=== PATIENT | male | born 1985 | race Hispanic/Latino ===

== ENCOUNTER 2019-12-31 12:16 | Emergency (ER) | payer OTHER, SELFPAY ==
[2019-12-31 12:21] VITALS: BP 133/80; PULSE 66; RESP 18; TEMP 36.4; O2SAT 98
--- NOTE | 2019-12-31 12:24 | DI.RAD.S_ITS ---
PROCEDURE: XR CHEST 1V INDICATIONS: chest pain TECHNIQUE: One view of the chest was acquired. COMPARISON: None. FINDINGS: Surgical changes and devices: None. Lungs and pleura: Lungs are clear. No pleural effusions or pneumothorax. Mediastinum: Mediastinal contours appear normal. Heart size is normal. Bones and chest wall: No suspicious bony lesions. Overlying soft tissues appear unremarkable. IMPRESSION: No acute cardiopulmonary disease. Dictated by: Minerva Blackmon M.D. on 12/31/2019 at 13:19 Approved by: Minerva Blackmon M.D. on 12/31/2019 at 13:26
--- NOTE | 2019-12-31 12:44 | ED_ITS ---
HPI - Chest Pain <JOSUE Martinez - Last Filed: 12/31/19 15:47> General Chief Complaint: Chest Pain Stated Complaint: Heart Pain, Sweating Time Seen by Provider: 12/31/19 12:37 Source: patient Mode of arrival: Ambulatory Limitations: no limitations History of Present Illness HPI narrative: This is a 34-year-old male, former smoker, who does not have contributing medical history presents to ED from work with chief complain of localized and reproducible left chest pain radiation to left shoulder which lasted 25-30 minutes at 10:30 a.m. with sweats. 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 Patient reports he had similar symptoms in the past of few times but not as this severe. Patient denies associated symptoms such as breathing difficulty, dizziness, abdominal pain, nausea or vomiting. Patient reports pain felt like muscle cramps and rates as 7/10 and patient reports currently pain-free at this time. Patient reports pain improved when he put his arm up and stretched his chest. Patient denies family history of cardiac history. He reports noticed small amount of frequent urination glass few days and has to wake up every 3 hours at night but denies dysuria, burning with [place], hematuria, or urgency. No history of known diabetes. Related Data Home Medications Medication Instructions Recorded Confirmed No Known Home Medications 12/31/19 12/31/19 Allergies Allergy/AdvReac Type Severity Reaction Status Date / Time hydrocodone [From Vicodin] Allergy Intermediate Difficulty Verified 12/31/19 12:23 Breathing Review of Systems <JOSUE Martinez - Last Filed: 12/31/19 15:47> Review of Systems Narrative: General: Denies fever, chills, fatigue, malaise, sweats. HEENT: Denies sinus pain, ear pain, sore throat, difficulty swallowing, d izziness. Respiratory: Denies dyspnea, cough, wheezing, hemoptysis, sputum. Cardiovascular: See HPI Gastrointestinal: Denies nausea, vomiting, abdominal pain, diarrhea, constipation, melena. : Denies dysuria, (+) frequency, incontinence, hematuria, urinary retention. Musculoskeletal: See HPI Skin: Denies rash, skin lesions, or other. Neurologic: Denies weakness, headache, numbness, change in speech, confusion, seizures, incoordination. Psychiatric: No concerning psychosocial issues. 12-point review of systems is negative except for those stated above. Patient History <Daniele MimsJOSUE Garcia - Last Filed: 12/31/19 15:47> Medical History (Updated 12/31/19 @ 15:40 by JOSUE Martinez) No significant past medical history (Acute) Surgical History (Updated 12/31/19 @ 12:48 by JOSUE Martinez) No pertinent past surgical history (Acute) Social History Smoking Status: Former smoker Smoking Status: Former smoker alcohol intake frequency: 0-2 drinks per day Substance Use Type: marijuana Exam <Daniele MimsJOSUE Garcia - Last Filed: 12/31/19 15:47> Narrative Exam Narrative: GEN: Alert, oriented x 3, well appearing and nourished, and in no acute distress. Head: Normal cephalic, atraumatic. No scalp or temporal tenderness, palpable mass or rash. EYES: Pupils are equal, round, and reactive to light and accommodation. Extraocular muscles are intact bilaterally. There is no subconjunctival hemorrhage, exudate and sclera non-icteric. ENT: Hearing grossly intact. Airway patent. Neck: Trachea in midline. No JVD, non-tender without lymphadenopathy. No masses or thyroid megaly. Supple, non-tender and no meningeal signs. CARDIAC: Normal regular rate and rhythm without murmurs, gallops, or rubs. Localized chest pain to palpate in left mid chest sternal border. No peripheral edema, cyanosis or pallor. Capillary refill is less than 2 seconds. RESPIRATORY: Lungs are clear to auscultate bilaterally. No cough, wheezes, rales, or rhonchi. No stridor, respiratory distress, increase work of breathing, or accessary muscle used. ABD: Abdomen soft, nontender and non-distended. No guarding or rebound tenderness to palpate. Bowel sounds are normal in all 4 quadrants. There is no palpable masses or organomegaly. EXT: Full painless ROM of all extremities with no loss of sensation, strength, effusion or edema. SKIN: Warm, dry, normal color for patient. No erythema, lesions or rash over visible areas. BACK: Nontender without deformity or crepitance. No flank tenderness. NEUROLOGICAL: Alert and oriented to place, time and person. Sensation and motor function intact bilaterally. No facial droops, dysphasia. PSYCHIATRIC: Good judgement and reason, without hallucinations, abnormal affect or abnormal behaviors during the examination. Patient is not suicidal. Initial Vital Signs Initial Vital Signs: Vital Signs Temperature 97.5 F L 12/31/19 12:21 Pulse Rate 66 12/31/19 12:21 Respiratory Rate 18 12/31/19 12:21 Blood Pressure 133/80 12/31/19 12:21 Pulse Oximetry 98 12/31/19 12:21 <Nancy Pantoja DO - Last Filed: 01/06/20 07:30> Initial Vital Signs Initial Vital Signs: Vital Signs Temperature 97.5 F L 12/31/19 12:21 Pulse Rate 66 12/31/19 12:21 Respiratory Rate 18 12/31/19 12:21 Blood Pressure 133/80 12/31/19 12:21 Pulse Oximetry 98 12/31/19 12:21 Scores <RUMA MartinezP - Last Filed: 12/31/19 15:47> GCS Hero coma scale eye opening: Spontaneous [place] coma scale verbal response: Orientated [place] coma scale motor response: Obey commands [place] coma scale total score: 15 HEART Score Heart Score history: Slightly Suspicious Heart Score EKG: Normal Heart Score Age: < 45 years old Heart Score risk factors: No known risk factors Heart Score troponin: < or = to normal limit Heart Score Total: 0 Course <Daniele MimsRUMA GarciaP - Last Filed: 12/31/19 15:47> Orders Ordered: Discontinued Medications Ketorolac Tromethamine (Toradol) 30 mg IM NOW ONE Stop: 12/31/19 13:38 Last Admin: 12/31/19 13:55 Dose: 30 mg Documented by: JAC Vital Signs Vital signs: Vital Signs - 8 hr 12/31/19 12:21 12/31/19 15:40 Temperature 97.5 F L Pulse Rate 66 64 Respiratory Rate 18 14 Blood Pressure 133/80 134/68 Pulse Oximetry 98 97 <Nancy Pantoja DO - Last Filed: 01/06/20 07:30> Orders Ordered: Discontinued Medications Ketorolac Tromethamine (Toradol) 30 mg IM NOW ONE Stop: 12/31/19 13:38 Last Admin: 12/31/19 13:55 Dose: 30 mg Documented by: JAC Vital Signs Vital signs: Vital Signs - 8 hr 12/31/19 12:21 12/31/19 15:40 Temperature 97.5 F L Pulse Rate 66 64 Respiratory Rate 18 14 Blood Pressure 133/80 134/68 Pulse Oximetry 98 97 MDM - Chest Pain <Daniele JOSUE Perales - Last Filed: 12/31/19 15:47> Differential Diagnosis Differential diagnosis: Likely pneumothorax, atypical chest pain, costochondritis and other (Pneumonia, pleuritis, costal chondritis, electrolytes imbalance, diabetes,) Medical Records Data Attestation: I reviewed the patient's medical records. Lab Data Attestation: I reviewed the patient's lab results. Result diagrams: 12/31/19 12:40 12/31/19 12:40 Labs: Lab Results 12/31/19 12/31/19 12/31/19 Range/Units 12:40 12:40 12:40 WBC 9.7 (4.5-11.0) X10^3/uL RBC 4.91 (4.5-5.9) X10^6/uL Hgb 14.4 (13.5-17.5) g/dL Hct 41.0 (41-53) % MCV 83.5 (80-100) fL MCH 29.3 (26-34) PG MCHC 35.1 (30-36) % RDW 13.3 (11.6-14.8) % Plt Count 244 (150-400) X10^3/uL Neut % (Auto) 51.6 (50-75) % Lymph % (Auto) 33.5 (25-40) % [place] % (Auto) 6.5 (3-14) % Eos % (Auto) 7.2 H (2-4) % Baso % (Auto) 1.2 (0-2) % Neut # (Auto) 5000 (7303-4384) /uL Lymph # (Auto) 3200 (1245-6673) /uL [place] # (Auto) 600 (0-900) /uL Eos # (Auto) 700 H (0-450) /uL Baso # (Auto) 100 (0-100) /uL PT 10.6 (10.1-12.7) SECONDS INR 0.9 (0.9-1.3) APTT 32 (26.4-36.2) SECONDS Sodium 139 (137-145) mmol/L Potassium 3.8 (3.4-5.1) mmol/L Chloride 102 (98-107) mmol/L Carbon Dioxide 27 (22-32) mmol/L BUN 11 (9-20) mg/dL Creatinine 0.82 (0.66-1.25) mg/dL Estimated GFR > 60.0 (>60) mL/min BUN/Creatinine Ratio 13.4 (6-22) Glucose 106 H (70-100) mg/dL Calcium 9.6 (8.4-10.2) mg/dL Total Bilirubin 0.5 (0.2-1.3) mg/dL AST 42 (17-59) IU/L ALT 51 H (<50) IU/L Alkaline Phosphatase 55 (38-126) U/L Total Creatine Kinase 519 H (55-170) U/L CK-MB (CK-2) 3.76 H (<2.37) ng/mL CK-MB (CK-2) Rel Index 0.7 L (1.5-5.0) % Troponin I < 0.012 (0.01-0.034) ng/mL Total Protein 8.8 H (6.3-8.2) g/dL Albumin 4.8 (3.5-5.0) g/dL Globulin 4.0 (1.7-4.1) g/dL Albumin/Globulin Ratio 1.2 (1.0-2.8) Lipase 33 (23-300) U/L 12/31/19 Range/Units 15:00 WBC (4.5-11.0) X10^3/uL RBC (4.5-5.9) X10^6/uL Hgb (13.5-17.5) g/dL Hct (41-53) % MCV (80-100) fL MCH (26-34) PG MCHC (30-36) % RDW (11.6-14.8) % Plt Count (150-400) X10^3/uL Neut % (Auto) (50-75) % Lymph % (Auto) (25-40) % [place] % (Auto) (3-14) % Eos % (Auto) (2-4) % Baso % (Auto) (0-2) % Neut # (Auto) (9817-3117) /uL Lymph # (Auto) (7521-9917) /uL [place] # (Auto) (0-900) /uL Eos # (Auto) (0-450) /uL Baso # (Auto) (0-100) /uL PT (10.1-12.7) SECONDS INR (0.9-1.3) APTT (26.4-36.2) SECONDS Sodium (137-145) mmol/L Potassium (3.4-5.1) mmol/L Chloride (98-107) mmol/L Carbon Dioxide (22-32) mmol/L BUN (9-20) mg/dL Creatinine (0.66-1.25) mg/dL Estimated GFR (>60) mL/min BUN/Creatinine Ratio (6-22) Glucose (70-100) mg/dL Calcium (8.4-10.2) mg/dL Total Bilirubin (0.2-1.3) mg/dL AST (17-59) IU/L ALT (<50) IU/L Alkaline Phosphatase (38-126) U/L Total Creatine Kinase 488 H (55-170) U/L CK-MB (CK-2) 3.51 H (<2.37) ng/mL CK-MB (CK-2) Rel Index 0.7 L (1.5-5.0) % Troponin I < 0.012 (0.01-0.034) ng/mL Total Protein (6.3-8.2) g/dL Albumin (3.5-5.0) g/dL Globulin (1.7-4.1) g/dL Albumin/Globulin Ratio (1.0-2.8) Lipase (23-300) U/L Imaging Data Chest x-ray: Radiologist's Impression: [address] [place] [id number] XRay Report Signed Patient: Cristiano Schwarz PRINCE#: [id number] : 1985Acct:[id number] Age/Sex: 34 / MDate of Service: 12/31/19 Loc: ED Accession Number: [id number] Procedure: XR chest 1V Ordering Provider: Nancy Pantoja D.O. PROCEDURE: XR CHEST 1V INDICATIONS: chest pain TECHNIQUE: One view of the chest was acquired. COMPARISON: None. FINDINGS: Surgical changes and devices: None. Lungs and pleura: Lungs are clear. No pleural effusions or pneumothorax. Mediastinum: Mediastinal contours appear normal. Heart size is normal. Bones and chest wall: No suspicious bony lesions. Overlying soft tissues appear unremarkable. IMPRESSION: No acute cardiopulmonary disease. Dictated by: Minerva Blackmon M.D. on 12/31/2019 at 13:19 Approved by: Minerva Blackmon M.D. on 12/31/2019 at 13:26 ECG Data Attestation: I personally reviewed and interpreted this ECG as follows: Prior ECG tracings: not available for review Interpretation: Sinus bradycardia rate at 58. NOrmal [place]. PA interval 150, QRS duration 108, QT/QTC 404/400. No acute ST changes MDM Narrative Medical decision making narrative: EKG normal sinus Jonathan rhythm without acute ST changes. Chest x-ray without acute cardiopulmonary disease findings. Physical exam is unremarkable. Heart Score is 0. Patient reports reproducible and localized left-sided chest pain resolved after lasting about 30 minutes when it occurred this morning. No leukocytosis, unremarkable chemistry test. Two sets of troponin was negative. Slightly elevated CK of 519 which has improved to 488 after oral hydration. CK-MB is slightly elevated to 3.76 and 2nd one as 3.51 CK/MB but relative index is negative. Patient continued to have symptoms free ED. patient advised to arrange primary care physician and have come outpatient cardiac workup to follow. Return precautions were discussed with patient and patient verbalized understanding and agreement with the treatment plan. <Nancy Pantoja, DO - Last Filed: 01/06/20 07:30> Lab Data Labs: Lab Results 12/31/19 12/31/19 12/31/19 Range/Units 12:40 12:40 12:40 WBC 9.7 (4.5-11.0) X10^3/uL RBC 4.91 (4.5-5.9) X10^6/uL Hgb 14.4 (13.5-17.5) g/dL Hct 41.0 (41-53) % MCV 83.5 (80-100) fL MCH 29.3 (26-34) PG MCHC 35.1 (30-36) % RDW 13.3 (11.6-14.8) % Plt Count 244 (150-400) X10^3/uL Neut % (Auto) 51.6 (50-75) % Lymph % (Auto) 33.5 (25-40) % [place] % (Auto) 6.5 (3-14) % Eos % (Auto) 7.2 H (2-4) % Baso % (Auto) 1.2 (0-2) % Neut # (Auto) 5000 (5142-9402) /uL Lymph # (Auto) 3200 (1025-6010) /uL [place] # (Auto) 600 (0-900) /uL Eos # (Auto) 700 H (0-450) /uL Baso # (Auto) 100 (0-100) /uL PT 10.6 (10.1-12.7) SECONDS INR 0.9 (0.9-1.3) APTT 32 (26.4-36.2) SECONDS Sodium 139 (137-145) mmol/L Potassium 3.8 (3.4-5.1) mmol/L Chloride 102 (98-107) mmol/L Carbon Dioxide 27 (22-32) mmol/L BUN 11 (9-20) mg/dL Creatinine 0.82 (0.66-1.25) mg/dL Estimated GFR > 60.0 (>60) mL/min BUN/Creatinine Ratio 13.4 (6-22) Glucose 106 H (70-100) mg/dL Calcium 9.6 (8.4-10.2) mg/dL Total Bilirubin 0.5 (0.2-1.3) mg/dL AST 42 (17-59) IU/L ALT 51 H (<50) IU/L Alkaline Phosphatase 55 (38-126) U/L Total Creatine Kinase 519 H (55-170) U/L CK-MB (CK-2) 3.76 H (<2.37) ng/mL CK-MB (CK-2) Rel Index 0.7 L (1.5-5.0) % Troponin I < 0.012 (0.01-0.034) ng/mL Total Protein 8.8 H (6.3-8.2) g/dL Albumin 4.8 (3.5-5.0) g/dL Globulin 4.0 (1.7-4.1) g/dL Albumin/Globulin Ratio 1.2 (1.0-2.8) Lipase 33 (23-300) U/L 12/31/19 Range/Units 15:00 WBC (4.5-11.0) X10^3/uL RBC (4.5-5.9) X10^6/uL Hgb (13.5-17.5) g/dL Hct (41-53) % MCV (80-100) fL MCH (26-34) PG MCHC (30-36) % RDW (11.6-14.8) % Plt Count (150-400) X10^3/uL Neut % (Auto) (50-75) % Lymph % (Auto) (25-40) % [place] % (Auto) (3-14) % Eos % (Auto) (2-4) % Baso % (Auto) (0-2) % Neut # (Auto) (6759-0977) /uL Lymph # (Auto) (3414-0614) /uL [place] # (Auto) (0-900) /uL Eos # (Auto) (0-450) /uL Baso # (Auto) (0-100) /uL PT (10.1-12.7) SECONDS INR (0.9-1.3) APTT (26.4-36.2) SECONDS Sodium (137-145) mmol/L Potassium (3.4-5.1) mmol/L Chloride (98-107) mmol/L Carbon Dioxide (22-32) mmol/L BUN (9-20) mg/dL Creatinine (0.66-1.25) mg/dL Estimated GFR (>60) mL/min BUN/Creatinine Ratio (6-22) Glucose (70-100) mg/dL Calcium (8.4-10.2) mg/dL Total Bilirubin (0.2-1.3) mg/dL AST (17-59) IU/L ALT (<50) IU/L Alkaline Phosphatase (38-126) U/L Total Creatine Kinase 488 H (55-170) U/L CK-MB (CK-2) 3.51 H (<2.37) ng/mL CK-MB (CK-2) Rel Index 0.7 L (1.5-5.0) % Troponin I < 0.012 (0.01-0.034) ng/mL Total Protein (6.3-8.2) g/dL Albumin (3.5-5.0) g/dL Globulin (1.7-4.1) g/dL Albumin/Globulin Ratio (1.0-2.8) Lipase (23-300) U/L Discharge Plan Departure Patient Disposition: Home Clinical Impression: Atypical chest pain, Costalchondritis Discharge Date/Time: 12/31/19 15:44 Instructions: DI for Atypical Chest Pain, DI for Costochondritis Activity Restrictions/Additional Instructions: You have been diagnosed with [atypical chest pain likely from costal chondritis. EKG, labs, chest x-ray with assuring results.]. What to do: *Take your medications as directed. You can take [id number] Tylenol and or Motrin as needed for discomfort. *Follow up with your primary care provider in 2-3 days, call for an appointment. Let them know you were seen in the ED and that we asked you to be seen in follow up for further cardiac our workup. *Return to ED if you have any new, worsening, or concerning symptoms, such as [worsening or different chest pain, breathing difficulty, nausea or vomiting, fever, rashes, or any acute concerns]. Prescriptions: No Action No Known Home Medications RF: 0 Referrals: [facility] [Outside] <Nancy Pantoja DO - Last Filed: 01/06/20 07:30> Cosign ED Attending Ana María Attestation: I was immediately available in the de partment for consultation. Documentation has been reviewed. I agree with assessment and plan.
[2019-12-31 12:49] LABS: Add Manual Diff / Slide Review NO; Basophils Absolute Auto 100 /uL (0-100); Basophils Percent Auto 1.2 % (0-2); Eosinophils Absolute Auto 700 /uL (0-450); Eosinophils Percent Auto 7.2 % (2-4); Hemoglobin 14.4 g/dL (13.5-17.5); Lymphocytes Absolute Auto 3200 /uL (1100-4500); Lymphocytes Percent Auto 33.5 % (25-40); Mean Corpuscular HGB Conc 35.1 % (30-36); Mean Corpuscular Hemoglobin 29.3 PG (26-34); Mean Corpuscular Volume 83.5 fL (80-100); Monocytes Absolute Auto 600 /uL (0-900); Monocytes Percent Auto 6.5 % (3-14); Neutrophils Absolute Auto 5000 /uL (1500-7000); Neutrophils Percent Auto 51.6 % (50-75); Platelet Count 244 X10^3/uL (150-400); Red Blood Cell Count 4.91 X10^6/uL (4.5-5.9); Red Cell Distribution Width 13.3 % (11.6-14.8); White Blood Cell Count 9.7 X10^3/uL (4.5-11.0)
[2019-12-31 13:00] LABS: INR 0.9 (0.9-1.3); Prothrombin Time 10.6 SECONDS (10.1-12.7)
[2019-12-31 13:03] LABS: PTT Partial Thromboplastin Tim 32 SECONDS (26.4-36.2)
[2019-12-31 13:04] LABS: Alanine Aminotransferase 51 IU/L (<50); Albumin 4.8 g/dL (3.5-5.0); Albumin Globulin Ratio 1.2 (1.0-2.8); Alkaline Phosphatase 55 U/L (38-126); Aspartate Aminotransferase 42 IU/L (17-59); BUN Creatinine Ratio 13.4 (6-22); Bilirubin Total 0.5 mg/dL (0.2-1.3); Blood Urea Nitrogen 11 mg/dL (9-20); Calcium 9.6 mg/dL (8.4-10.2); Carbon Dioxide 27 mmol/L (22-32); Chloride 102 mmol/L (98-107); Creatine Kinase 519 U/L (55-170); Estimated Glomerular Filt Rate > 60.0 mL/min (>60); Glucose 106 mg/dL (70-100); HEMOLYSIS < 15 (0-50); Lipase 33 U/L (23-300); Potassium 3.8 mmol/L (3.4-5.1); Sodium 139 mmol/L (137-145); Total Protein 8.8 g/dL (6.3-8.2)
[2019-12-31 13:16] LABS: Troponin I < 0.012 ng/mL (0.01-0.034)
[2019-12-31 13:19] LABS: CKMB % Relative Index 0.7 % (1.5-5.0); Creatine Kinase MB 3.76 ng/mL (<2.37)
[2019-12-31] MEDS: KETOROLAC 60 MG/2 ML VIAL 30 MG IM (13:55)
[2019-12-31 15:16] LABS: Creatine Kinase 488 U/L (55-170)
[2019-12-31 15:28] LABS: Troponin I < 0.012 ng/mL (0.01-0.034)
[2019-12-31 15:32] LABS: CKMB % Relative Index 0.7 % (1.5-5.0); Creatine Kinase MB 3.51 ng/mL (<2.37)
[2019-12-31 15:40] VITALS: BP 134/68; PULSE 64; RESP 14; O2SAT 97
== END 2019-12-31 15:44 | disposition home or self-care (01) ==
PROVIDERS: Emergency Medicine; Emergency Provider Nurse Practitioner Family
DX: R07.89 Other chest pain (principal); M94.0 Chondrocostal junction syndrome [Tietze]; M25.512 Pain in left shoulder
CPT/HCPCS: 36415; 71045; 80053; 82550; 82553; 83690; 84484; 85025; 85610; 85730; 93005; 93010; 96372; 99284; J1885

== ENCOUNTER → 2023-01-31 11:30 | Outpatient (CLI) | payer SELFPAY | PROVIDERS: Referring Provider Family Medicine; Visit Provider Family Medicine | DX: Z23 Encounter for immunization (principal) | CPT/HCPCS: 90471; 90686 ==

== ENCOUNTER → 2024-02-21 14:45 | Outpatient (CLI) | payer OTHER, SELFPAY | PROVIDERS: Referring Provider Internal Medicine; Visit Provider Internal Medicine | DX: Z23 Encounter for immunization (principal) | CPT/HCPCS: 90471; 90656 ==

== ENCOUNTER 2024-12-20 01:55 | Emergency (ER) | payer OTHER, SELFPAY ==
[2024-12-20 03:37] VITALS: BP 105/64; PULSE 66; RESP 18; TEMP 36.4; O2SAT 98; BMI 29.5
--- NOTE | 2024-12-20 04:31 | ED_ITS ---
HPI - General Adult General Chief complaint: Abdominal Pain Stated complaint: Urinary Symptoms x2 weeks Time Seen by Provider: 12/20/24 03:37 Source: patient and family Mode of arrival: Ambulatory History of Present Illness HPI narrative: 39-year-old male with history of ongoing left flank pain, diagnosed 2 weeks ago with kidney stone in the left side, improved with Toradol, does not believe that he has passed his stone, symptoms seemed to be worsening. No fevers or chills. No nausea or vomiting. Scheduled later this month to see local urologist. Had throat tightening sensation with trial of Flomax, stopped taking. Related Data Previous Rx's ?Medication ?Instructions ?Recorded ondansetron 4 mg disintegrating 4 mg PO Q8H PRN nausea and 12/02/24 tablet vomiting #10 tabs tamsulosin 0.4 mg capsule (Flomax) 0.4 mg PO DAILY #20 caps 12/02/24 tramadol 50 mg tablet 50 mg PO Q8H PRN pain (scale score 12/07/24 7-10) #10 tabs Allergies Allergy/AdvReac Type Severity Reaction Status Date / Time hydrocodone (From Vicodin) Allergy Intermediate Difficulty Verified 12/04/24 14:06 Breathing easy angelic Allergy Mild Uncoded 12/20/24 04:09 Patient History Medical History No significant past medical history Surgical History No pertinent past surgical history Social History Smoking Status: Current some day smoker Smoking Status: Current some day smoker tobacco type: cigarettes alcohol intake frequency: 0-2 drinks per day Exam Narrative Exam Narrative: GENERAL: Well-developed patient, in mild distress. HEAD: Atraumatic. Normocephalic. EYES: Pupils equal round and reactive. Extraocular motions intact. No scleral icterus. No injection or drainage. ENT: Nose without bleeding, purulent drainage. Throat without erythema, tonsillar hypertrophy or exudate. Airway patent. NECK: Trachea midline. Non tender CARDIOVASCULAR: Regular rate and rhythm without murmurs, gallops, or rubs. RESPIRATORY: Clear to auscultation. Breath sounds equal bilaterally. No wheezes, rales, or rhonchi. GASTROINTESTINAL: Abdomen soft, non-tender, nondistended. EXTREMITIES: No edema or joint tenderness. BACK: Nontender without deformity or crepitance. No flank tenderness. NEURO: AOx3. Motor functions grossly nonfocal. SKIN: No rash or erythema of visible areas Initial Vital Signs Initial Vital Signs: Vital Signs Temperature 97.5 F L 12/20/24 03:37 Pulse Rate 66 12/20/24 03:37 Respiratory Rate 18 12/20/24 03:37 Blood Pressure 105/64 12/20/24 03:37 Pulse Oximetry 98 12/20/24 03:37 Oxygen Delivery Method Room Air 12/20/24 03:37 Course Orders Ordered: Discontinued Medications Ketorolac Tromethamine (Ketorolac 30 Mg/Ml Vial) 15 mg IV NOW ONE Stop: 12/20/24 05:02 Last Admin: 12/20/24 05:21 Dose: 15 mg Documented By: MORALES Tramadol HCl (Tramadol 50 Mg Prepack) 1 bottle MISC DIRECTED ONE Stop: 12/20/24 06:16 Last Admin: 12/20/24 06:32 Dose: 1 bottle Documented By: SARITA Vital Signs Vital signs: Vital Signs - 8 hr 12/20/24 03:37 Temperature 97.5 F L Pulse Rate 66 Respiratory Rate 18 Blood Pressure 105/64 Pulse Oximetry 98 Oxygen Delivery Method Room Air Medical Decision Making Lab Data Lab results reviewed: Yes I reviewed the patient's lab results. Lab results narrative: White blood cell count 85775, hemoglobin 12.9, platelets adequate. Glucose 99. Renal function normal, electrolytes normal. Serum CO2 normal. Liver functions and lipase normal. Urinalysis showed presence of blood, no bacteria, LE negative, urine culture not indicated. 12/20/24 05:20 12/20/24 05:20 Labs: Lab Results 12/20/24 12/20/24 Range/Units 04:00 05:20 WBC 10.5 (4.5-11.0) X10^3/uL RBC 4.46 L (4.5-5.9) X10^6/uL Hgb 12.9 L (13.5-17.5) g/dL Hct 37.9 L (41-53) % MCV 85.0 (80-100) fL MCH 29.0 (26-34) PG MCHC 34.1 (30-36) % RDW 13.3 (11.6-14.8) % Plt Count 236 (150-400) X10^3/uL Neut % (Auto) 58.4 (50-75) % Lymph % (Auto) 28.0 (25-40) % [place] % (Auto) 7.3 (3-14) % Eos % (Auto) 5.8 H (2-4) % Baso % (Auto) 0.5 (0-2) % Neut # (Auto) 6100 (3596-3016) /uL Lymph # (Auto) 2900 (8849-3971) /uL [place] # (Auto) 800 (0-900) /uL Eos # (Auto) 600 H (0-450) /uL Baso # (Auto) 100 (0-100) /uL Sodium 138 (137-145) mmol/L Potassium 4.0 (3.4-5.1) mmol/L Chloride 103 (98-107) mmol/L Carbon Dioxide 25 (22-32) mmol/L BUN 20 (9-20) mg/dL Creatinine 0.95 (0.66-1.25) mg/dL Estimated GFR > 60 (>60) mL/min BUN/Creatinine Ratio 21.1 (6-22) Glucose 99 (70-99) mg/dL Calcium 9.3 (8.4-10.2) mg/dL Total Bilirubin 0.4 (0.2-1.3) mg/dL AST 40 (17-59) IU/L ALT 24 (<50) IU/L Alkaline Phosphatase 45 (38-126) U/L Total Protein 7.9 (6.3-8.2) g/dL Albumin 4.5 (3.5-5.0) g/dL Globulin 3.4 (1.7-4.1) g/dL Albumin/Globulin Ratio 1.3 (1.0-2.8) Lipase 36 (23-300) U/L Urine Color Yellow Urine Appearance Sl cloudy Urine pH 7.0 (4.5-8.0) Ur Specific [place] 1.015 (1.000-1.035) Urine Protein Negative (Negative) Urine Glucose (UA) Negative (Negative) g/dL Urine Ketones Negative (NEGATIVE) Urine Occult Blood 3+ H (Negative) Urine Nitrate Negative (Negative) Urine Bilirubin Negative (NEGATIVE) Urine Urobilinogen 0.2 (0.2) E.U./dL Ur Leukocyte Esterase Negative (NEGATIVE) Urine RBC 10-30/hpf H (0-5/HPF) Urine WBC None seen (0-5/HPF) Ur Squamous Epith Cells 0-1 /hpf (0-5/HPF) Urine Bacteria None seen (None) Urine Mucus 1+ H (Negative) Ur Culture Indicated? Cult not indicated Vol Urine Centrifuged 10ml (spun) Ethyl Alcohol < 10 (<10) mg/dL Ur Chlamydia DNA (PCR) Not detected N gonorrhoeae DNA (PCR) Not detected MDM Narrative Medical decision making narrative: 39-year-old male with recent diagnosis left-sided kidney stone, has not passed, has not had any follow up with Urology, feels like the pain is increasing. Afebrile, sirs screen negative. No CVA region tenderness on examination. Urinalysis shows some blood but not obviously infected. Labs pending. IV Toradol. Lab data: White blood cell count 58962, hemoglobin 12.9, platelets adequate. Glucose 99. Renal function normal, electrolytes normal. Serum CO2 normal. Liver functions and lipase normal. Urinalysis showed presence of blood, no bacteria, LE negative, urine culture not indicated. CT abdomen and pelvis noncontrast. Impressions: ?3 mm obstructing calculus just proximal to the left UVJ with renal edema and mild hydro ureteral nephrosis on the left. No evidence of obstructive uropathy on the right. ? See radiology report. Urinalysis without obvious infection. Afebrile, we will refill tramadol home pack. Patient had possible allergic reaction close throat sensation with prior Flomax/tamsulosin trial. Follow up with Urology, contact information provided. Discharged home with family. Return precautions discussed. Discharge Plan Departure Patient Disposition: Home Clinical Impression: Calculus of left ureter Instructions: DI for Kidney Stones Activity Restrictions/Additional Instructions: Ongoing left flank pain, recently increased. History of left-sided kidney stone. No fever today. Urinalysis showed blood but not obviously infected. CT abdomen and pelvis imaging today showed 3 mm stone in his fairly high up in the system, blocking the left ureter. You had possible allergic reaction to Flomax/tamsulosin medication, that might be helpful for expulsion of stones, but might be too high of a risk to attempt if you had possible allergic reaction. Continue taking Tylenol and/or Motrin. Home pack of tramadol to use if needed for pain control. Follow up with Urology, clinic contact information provided. Call the office tomorrow for follow up ER visit appointment, to see if your existing appointment can be moved up any sooner. Return earlier to this/nearest emergency department for any change worsening symptoms or any concerns prior. Prescriptions: No Action tramadol 50 mg tablet 50 mg PO Q8H PRN (Reason: pain (scale score 7-10)) Qty: 10 0RF tamsulosin [Flomax] 0.4 mg capsule 0.4 mg PO DAILY Qty: 20 0RF ondansetron 4 mg tablet,disintegrating 4 mg PO Q8H PRN (Reason: nausea and vomiting) Qty: 10 0RF Referrals: Maged Kapoor DO [Physician, Urology] Miscellaneous,Doctor, MD [Primary Care Provider, Medical] Stand Alone Forms: Patient Portal/API
--- NOTE | 2024-12-20 05:01 | DI.CT.S_ITS ---
PROCEDURE: CT ABDOMEN PELVIS WO CON INDICATIONS: L flank pain TECHNIQUE: CT of the abdomen and pelvis was obtained without intravenous contrast. Coronal and sagittal reformats were performed. For radiation dose reduction, the following was used: automated exposure control, adjustment of mA and/or kV according to patient size. COMPARISON: [facility], CT, CT ABDOMEN PELVIS WO CON, 12/02/2024, 3:08. FINDINGS: Image quality: Diagnostic Lower chest: Unremarkable lung bases. Normal heart size. Liver: No contour deforming mass. Solid organs are not well assessed without IV contrast Gallbladder and biliary system: Unremarkable, nondilated Pancreas: No ductal dilation Spleen: Nonenlarged Adrenals: No discrete nodules Kidneys: Contour deforming mass. 3 mm left UVJ stone is present. Minimal upstream hydronephrosis. Tiny nonobstructing right upper pole calculus also present. Vessels and lymph nodes: No abdominal aortic aneurysm. No lymphadenopathy by size criteria. Bowel and peritoneum: No small bowel obstruction. Colonic diverticula. Appendix is nondilated. No abscess or ascites. Body wall: Small fat containing inguinal hernia. Pelvis: Bladder is unremarkable. Prostate is unremarkable on limited non- contrast CT evaluation. Bones: No aggressive appearing osseous abnormality. IMPRESSION: 3 mm left UVJ stone, likely the same calculus that is advanced from the left renal pelvis previously. Minimal upstream hydronephrosis. Other findings above. No significant discrepancy from the preliminary report. Dictated by: Javier Banuelos M.D. on 12/20/2024 at 7:46 Approved by: Javier Banuelos M.D. on 12/20/2024 at 7:50
[2024-12-20 05:16] LABS: Appearance Urine UA SL CLOUDY; Bilirubin Urine UA NEGATIVE (NEGATIVE); Color Urine UA YELLOW; Glucose Urine UA NEGATIVE (Negative); Ketones Urine UA NEGATIVE (NEGATIVE); Leukocyte Esterase Urine UA NEGATIVE (NEGATIVE); Nitrite Urine UA NEGATIVE (Negative); Occult Blood Urine UA 3+ (Negative); Protein Urine UA NEGATIVE (Negative); Specific Gravity Urine UA 1.015 (1.000-1.035); Urobilinogen Urine UA 0.2 E.U./dL (0.2); pH Urine UA 7.0 (4.5-8.0)
[2024-12-20] MEDS: KETOROLAC 30 MG/ML VIAL 15 MG IV (05:21)
[2024-12-20 05:25] LABS: Culture Indicated Urine Cult Not Indicated
[2024-12-20 05:29] LABS: Add Manual Diff / Slide Review NO; Hematocrit 37.9 % (41-53); Hemoglobin 12.9 g/dL (13.5-17.5); Lymphocytes Absolute Auto 2900 /uL (1100-4500); Mean Corpuscular HGB Conc 34.1 % (30-36); Mean Corpuscular Hemoglobin 29.0 PG (26-34); Mean Corpuscular Volume 85.0 fL (80-100); Platelet Count 236 X10^3/uL (150-400)
[2024-12-20 05:55] LABS: Alanine Aminotransferase 24 IU/L (<50); Albumin 4.5 g/dL (3.5-5.0); Albumin Globulin Ratio 1.3 (1.0-2.8); Alkaline Phosphatase 45 U/L (38-126); Blood Urea Nitrogen 20 mg/dL (9-20); Calcium 9.3 mg/dL (8.4-10.2); Carbon Dioxide 25 mmol/L (22-32); Chloride 103 mmol/L (98-107); Estimated Glomerular Filt Rate > 60 mL/min (>60); Globulin 3.4 g/dL (1.7-4.1); Glucose 99 mg/dL (70-99); HEMOLYSIS 26 (0-50); Lipase 36 U/L (23-300); Potassium 4.0 mmol/L (3.4-5.1); Sodium 138 mmol/L (137-145); Total Protein 7.9 g/dL (6.3-8.2)
[2024-12-20 05:56] LABS: Ethanol (ETOH) < 10 mg/dL (<10)
[2024-12-20 06:42] LABS: Urine N gonorrhoeae NOT DETECTED
[2024-12-20 06:43] VITALS: BP 115/68; PULSE 67; RESP 16; TEMP 37; O2SAT 98
[2024-12-20 06:49] LABS: Urine Chlamydia NOT DETECTED
== END 2024-12-20 06:46 | disposition home or self-care (01) ==
PROVIDERS: Emergency Provider Emergency Medicine
DX: N20.1 Calculus of ureter (principal); Z87.442 Personal history of urinary calculi
CPT/HCPCS: 36415; 74176; 80053; 80320; 81001; 83690; 85025; 87491; 87591; 96374; 99284; J1885

== ENCOUNTER → 2025-01-17 08:20 | Outpatient (CLI) | payer OTHER, SELFPAY ==
--- NOTE | 2025-01-17 08:21 | DI.CT.S_ITS ---
PROCEDURE: CT PEL WO CON INDICATIONS: 39 y/o M w/ 3mm left UVJ calculus, eval for passage TECHNIQUE: Noncontrast 3 mm axial sections acquired through the bony pelvis, with coronal and sagittal reformatting. COMPARISON: [facility], CT, CT ABDOMEN PELVIS WO CON, 12/20/2024, 5:22. FINDINGS: Image quality: Excellent. Bones: Normal. Soft tissues: A previously present distal left ureteral stone measuring approximately 3 mm was present 12/20/24 and this follow-up CT shows resolution of that stone. A nearby phlebolith on the left is present and a slightly larger phlebolith on the right at the same axial level also remains present. IMPRESSION: Resolution of a far distal left ureteral stone. Several pelvic phleboliths remain stable over time as expected. Dictated by: Dean Downs M.D. on 01/17/2025 at 11:36 Approved by: Dean Downs M.D. on 01/17/2025 at 11:39
== END ==
LOC: CT 08:21
PROVIDERS: Referring Provider Urology; Visit Provider Urology
DX: N20.1 Calculus of ureter (principal); I87.8 Other specified disorders of veins
CPT/HCPCS: 72192